=== PATIENT | female | born 1970 | race Caucasian/White ===

== ENCOUNTER 2023-02-13 11:02 | Day surgery (SDC) | payer BC ==
[2023-02-09 15:11] LABS: BASOPHILS % (AUTO) 0.5 % (0-1); EOSINOPHILS # (AUTO) 0.2 X10'3 (0-0.9); EOSINOPHILS % (AUTO) 3.4 % (0-6); LYMPHOCYTES # (AUTO) 1.6 X10'3 (1.1-4.8); LYMPHOCYTES % (AUTO) 31.9 % (21-51); MEAN CORPUSCULAR HGB CONC 33.1 g/dL (33.0-36.5); MEAN CORPUSCULAR VOLUME 90.6 FL (78-98); MEAN PLATELET VOLUME 8.2 FL (7.4-10.4); MONOCYTES # (AUTO) 0.5 X10'3 (0-0.9); MONOCYTES % (AUTO) 9.3 % (2-12); NEUTROPHILS # (AUTO) 2.7 X10'3 (1.8-7.7); NEUTROPHILS % (AUTO) 54.9 % (42-75); PRE OP HEMATOCRIT 39.5 % (35.0-45.0); PRE OP HEMOGLOBIN 13.1 g/dL (12.0-16.0); PRE OP PLATELET COUNT 233 X10'3 (140-440); RED BLOOD COUNT 4.36 X10'6 (4.20-5.60); RED CELL DISTRIBUTION WIDTH 12.8 % (11.5-14.5)
[2023-02-09 15:17] LABS: PRE OP PROTIME 10.5 SECONDS (9.0-12.0)
[2023-02-09 15:22] LABS: ALBUMIN 4.1 G/DL (3.4-5.0); ALBUMIN/GLOBULIN RATIO 1.2 (1.1-1.5); ALKALINE PHOSPHATASE 55 IU/L (46-116); BLOOD UREA NITROGEN 17 MG/DL (7-18); CALCIUM 9.3 MG/DL (8.5-10.1); CHLORIDE 104 MMOL/L (99-107); CREATININE 0.81 MG/DL (0.40-0.90); PRE OP ALT 26 U/L (30-65); PRE OP ANION GAP 7 (8-16); PRE OP AST 20 U/L (10-37); PRE OP BILIRUB, TOTAL 0.6 MG/DL (0.0-1.0); PRE OP GLUCOSE 92 MG/DL (70-104); PRE OP POTASSIUM 3.8 MMOL/L (3.4-5.1); PRE OP SODIUM 139 MMOL/L (135-145); TOTAL CARBON DIOXIDE 27.9 MMOL/L (24-32); TOTAL PROTEIN 7.5 G/DL (6.4-8.2); eGFR 74 ML/MIN
--- NOTE | 2023-02-09 15:29 | NUR ---
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 I REPORTED THIS TO DR HAWTHORNE AND HAD IT PUT ON THE OR SCHEDULE.
[~2023-02-13] VITALS: Ht 180.3 cm; Wt 104.0 kg
[2023-02-13] VITALS (14 sets, daily range): BP systolic 112–125; BP diastolic 63–75
[~2023-02-13 11:02] MED LIST: CALC500T63 PO; MULT-1085 PO; P EP PO; famotidine 20mg tablet PO ONE; levoFLOXACIN-Levaquin 500mg/D5 100 ML IV ONE; ringers solution, lacted 1,000 ML IV SCH
[2023-02-13] MEDS ORDERED: fentaNYL/PF 50MCG/1 ML 2ML syringe ONE (13:52)
[2023-02-13] MEDS ORDERED: midazolam 1 mg/ML 2ml injection ONE (13:53)
[2023-02-13] MEDS ORDERED: sevoflurane 250ml liquid IH ONE (13:56)
[2023-02-13] MEDS ORDERED: glycopyrrolate 0.2mg/ml inj ONE (13:56)
[2023-02-13] MEDS ORDERED: BUPIVAcaine/PF 2.5 mg/ml (0.25%) 30ml vial IJ ONE (14:30)
[2023-02-13] MEDS ORDERED: ondansetron/PF 4mg/2ml inj IV PRN (14:35)
[2023-02-13] MEDS ORDERED: proCHLORperazine 10 MG/2 ml inj IV PRN (14:35)
[2023-02-13] MEDS ORDERED: morphine 2 MG/ML inj. syringe IV PRN (14:35)
[2023-02-13] MEDS ORDERED: morphine 4 MG/ML inj SYRINge IV PRN (14:35)
[2023-02-13] MEDS ORDERED: meperidine/PF 25mg/ml syringe IV PRN ×3 (14:35)
[2023-02-13] MEDS ORDERED: ringers solution, lacted 1,000 ML IV SCH (14:35)
[2023-02-13] MEDS ORDERED: propofol inj 20 ML IV ONE (15:38)
[2023-02-13] MEDS ORDERED: dexamethasone sod phosphate 4mg/ml inj. ONE (15:38)
[2023-02-13] MEDS ORDERED: ondansetron/PF 4mg/2ml inj ONE (15:38)
--- NOTE | 2023-02-13 16:02 | NUR ---
Received from OR via [facility], accompanied by Anesthesiologist DR HAWTHORNE and report given by Anesthesiologist AND CHAIR. PT DROWSY, DENIES PAIN, RIGHT BREAST W/GAUZE COVERING INCISION CDI W/BRA BINDER ON AND IN PLACE. Addendum: 02/13/23 at 1633 by Valarie Quezada RN Amended: Links added.
--- NOTE | 2023-02-13 18:22 | NUR ---
PT UP AND ABLE TO AMBULATE SAFELY, VOIDED. D/C INSTRUCTIONS GIVEN AND GONE OVER W/PT WHO VERBALIZED UNDERSTANDING. PT D/CD TO HOME VIA W/C TO PRIVATE VEHICLE W/O INCIDENT. Addendum: 02/13/23 at 1831 by Valarie Quezada RN Amended: Links added.
== END 2023-02-13 18:22 | disposition home or self-care (01) ==
LOC: PAS 11:02
PROVIDERS: ATTEND Surgery
DX: C50.211 Malignant neoplasm of upper-inner quadrant of right female breast (principal); E66.9 Obesity, unspecified; Z68.32 Body mass index [BMI] 32.0-32.9, adult; G47.30 Sleep apnea, unspecified; F41.9 Anxiety disorder, unspecified; Q03.1 Atresia of foramina of Magendie and Luschka; G61.0 Guillain-Barre syndrome; Z98.890 Other specified postprocedural states; Z90.710 Acquired absence of both cervix and uterus; Z88.0 Allergy status to penicillin; Z79.899 Other long term (current) drug therapy; Z79.01 Long term (current) use of anticoagulants
CPT/HCPCS: 19301; 36415; 38525; 38792; 76098; 80053; 82948; 85025; 85610; 85730; 93005; J1100; J1956; J2175; J2250; J2405; J2704; J3010; J3490; J7030; J7120; Z7506; Z7508; Z7512; A4215; A4618; A6449; A7000